=== PATIENT | female | born 1960 | race Caucasian/White ===

== ENCOUNTER 2018-03-25 14:33 | Outpatient (CLI) | payer OTHER, SELFPAY ==
--- NOTE | 2018-03-25 13:53 | DI.RAD_ITS ---
SYMPTOM/DIAGNOSIS: NECK PAIN, CERVICALGIA, M54.2 CERVICAL SPINE: Odontoid, AP and lateral and bilateral oblique views. Flexion and extension views were also obtained. There is normal alignment of the cervical spine. The odontoid is intact. The lateral masses are well aligned. Small endplate osteophytes are seen at C 4-5 through C 6-7. There is mild neural foraminal narrowing bilaterally at C 5-6. No acute fractures or subluxations are seen. No abnormal subluxations are seen with flexion or extension. IMPRESSION: Mild to moderate degenerative changes in the cervical spine.
== END 2018-03-25 14:53 ==
PROVIDERS: PCP Family Medicine; Visit Provider Family Medicine
DX: M54.2 Cervicalgia (principal); M47.812 Spondylosis without myelopathy or radiculopathy, cervical region
CPT/HCPCS: 72052

== ENCOUNTER 2019-03-18 00:48 | Outpatient (CLI) | payer BC, SELFPAY ==
--- NOTE | 2019-03-18 15:07 | DI.CT_ITS ---
EXAM: CT HEAD WO CLINICAL HISTORY: head injury when standing fast, chronic headaches, [id number]. TECHNIQUE: Imaging Protocol: Axial computed tomography images with coronal and sagittal reformatted images were created and reviewed COMPARISON: No exams were available for comparison FINDINGS: Ventricles and Extra axial spaces: Normal in size and morphology for the patient's age. Hemorrhage: None. Cerebral parenchyma: Normal. Midline shift: None. Brainstem/Cerebellum: Normal. Calvarium: Normal. Visualized Paranasal sinuses/Mastoids: Clear. IMPRESSION: No acute intracranial process. DATA REPOSITORY: All CT scans at this facility are submitted to the National Radiology Data Registry (NRDR) Dose Index Registry (DIR) with the [employer] (ACR). RADIATION OPTIMIZATION: All CT scans at this facility use at least one of these dose optimization te chniques: automated exposure control; mA and/or kV adjustment per patient size (includes targeted exa ms where dose is matched to clinical indication); or iterative reconstruction.
== END 2019-03-18 01:08 ==
PROVIDERS: PCP Family Medicine; Visit Provider Family Medicine
DX: R51 Headache (principal); S09.90XA Unspecified injury of head, initial encounter
CPT/HCPCS: 70450

== ENCOUNTER 2019-07-21 11:08 | Outpatient (CLI) | payer OTHER, MEDICAID, SELFPAY ==
--- NOTE | 2019-07-21 09:29 | DI.RAD_ITS ---
EXAM: XR KNEE RT 4V+ INDICATION: knee pain. COMPARISON: No exams were available for comparison TECHNIQUE: 2D digital imaging was performed. FINDINGS: There is moderate narrowing of the medial femoral tibial joint. Periarticular spurring is seen in th e medial femoral tibial joint and the patellofemoral joint. No acute fracture or dislocation is pres ent. There is a small enthesophyte at the superior patella. There is a small joint effusion. The s oft tissues are otherwise unremarkable. IMPRESSION: Mild degenerative changes of the right knee.
--- NOTE | 2019-07-21 09:35 | DI.RAD_ITS ---
EXAM: XR HIP RT AP LAT ONLY CLINICAL HISTORY: right hip pain after fall 06/06/19, M25.551. TECHNIQUE: 2D digital imaging was performed. COMPARISON: No exams were available for comparison FINDINGS: BONES: No acute fracture is present. No bony destructive lesion is seen. JOINTS: No dislocation present. SOFT TISSUE: Normal. IMPRESSION: Unremarkable radiographs of the right hip. Unremarkable radiographs of the pelvis.
== END 2019-07-21 11:28 ==
PROVIDERS: PCP Family Medicine; Visit Provider Family Medicine
DX: M25.551 Pain in right hip (principal); M25.561 Pain in right knee; M17.11 Unilateral primary osteoarthritis, right knee; M25.461 Effusion, right knee
CPT/HCPCS: 73502; 73564

== ENCOUNTER 2019-12-12 06:13 | Day surgery (SDC) | payer OTHER, SELFPAY ==
[2019-12-12 06:23] VITALS: BP 107/62; PULSE 65; RESP 17; TEMP 36.4; O2SAT 98
[2019-12-12] MEDS: Lactated Ringers 1,000 ML 80 ML IV (06:54)
--- NOTE | 2019-12-12 08:00 | W.PM.DSUDISC ---
Discharge Plan Disposition Patient Disposition: HOME Condition: Good Discharge Details Reason For Visit: Colonoscopy Attending Provider: Christy Nunez Primary Care Provider: Hermila Bennett Home Meds and New Rx's Prescriptions: Continued estradiol [Yuvafem] 10 mcg tablet 10 mcg VG .COMPLEX Qty: 25 RF: 5 acetaminophen [Acetaminophen Extra Strength] 500 MG tablet 1,000 mg PO Q8H PRN PRNQty: 120 RF: 3 Discontinued bisacodyl [Dulcolax (bisacodyl)] 5 mg tablet,delayed release (DR/EC) 5 mg PO ONCE Qty: 4 RF: 0 polyethylene glycol 3350 17 gram/dose powder 17 g PO ONCE Qty: 238 RF: 0 Discharge Instructions Additional Instructions: Findings: No polyps were found. Mild diverticulosis was present. Make sure to take in 30 grams of fiber daily. Follow up: Plan for colonoscopy in 5 years due to prior history of polyps. Please call if you develop: fevers >101.5 Nausea or Vomiting Abdominal pain that is not transient DAY SURGERY UNIT POST COLONOSCOPY INSTRUCTIONS 1. Because there will be medication in your system for the next 24 hours, you may feel a little sleepy. Your coordination will be affected. Therefore: a. Do not drive or operate dangerous equipment for 24 hours. b. Do not drink alcohol beverages for 24 hours (not even beer). c. Plan to go home and rest for the day. 2. Generally there are no restrictions on your activity after a day or so has gone by, but you may feel a bit fatigued for a few days. 3 After you arrive home you may have a light meal and return to a normal diet as you can tolerate it without feeling sick to your stomach. 4. After surgery, you may feel pain or discomfort. This should be only transient, but if it persists please contact your doctor. 5. If there are any questions regarding the findings of your procedure, please feel free to contact your doctor. 6. If you are unable to contact your doctor with a problem, contact the hospital at [phone]. 7. Continue all your regular medications unless directed otherwise. I understand the above instructions and have no questions. Signature of Patient or Responsible Adult Escort Date/Time Name of Responsible Adult Escort Signature of Nurse Date/Time Activity:: Activity as Tolerated Diet:: As Tolerated Discharge Orders Discharge Orders: Discharge Order (Routine); Ordered 12/12/19 Ordered By: Christy Nunez DS: Diagnosis Discharge Diagnosis (1) History of colon polyps: Status: Acute (2) Diverticulosis: Status: Chronic
--- NOTE | 2019-12-12 08:02 | W.COLOREPORT ---
Date of service: 12/12/19 Time of Service: 08:02 Colonoscopy Report Date of procedure: 12/12/19 Pre-op diagnosis general: History of polyps Post-op diagnosis procedure note: other (Mild diverticulosis) Procedure: Colonoscopy Surgeon: Christy Nunez Anesthesia proc note operative: MAC Disposition: same day Indications: This patient had polyps found in 2010 and 2014. She presents for routine follow up. No symptoms. Procedure Description: The patient was placed in the left Sams position. Propofol was titrated to sedation. Digital rectal examination revealed no abnormalities. The scope was advanced to the cecum without difficulty. The ileocecal valve and appendiceal orifice were clearly identified. The distal ileum was intubated and appeared normal. The prep was good. The scope was slowly withdrawn over the course of greater than 6 minutes with no abnormalities seen in the ascending, transverse, descending, sigmoid colon or rectum including on retroflexed view with the exception of mild sigmoid diverticulosis. The patient tolerated the procedure well and was stable to recovery. Plan for routine screening colonoscopy in 5 years or sooner if symptoms indicate.
[2019-12-12 08:23] VITALS: BP 125/73; PULSE 52; RESP 18; TEMP 36.4; O2SAT 100
== END 2019-12-12 09:05 | disposition home or self-care (01) ==
PROVIDERS: PCP Family Medicine; Visit Provider Surgery
PROC: 0DJD8ZZ Inspection of Lower Intestinal Tract, Via Natural or Artificial Opening Endoscopic (ICD-10-PCS; CPT 45378; principal; 2019-12-12 07:30)
DX: Z12.11 Encounter for screening for malignant neoplasm of colon (principal); Z86.010 Personal history of colon polyps; K57.30 Diverticulosis of large intestine without perforation or abscess without bleeding
CPT/HCPCS: 45378; J2001; J2405

== ENCOUNTER 2020-01-07 02:41 | Outpatient (CLI) | payer OTHER, SELFPAY ==
--- NOTE | 2020-01-07 08:45 | DI.MRI_ITS ---
EXAM: MR LOWER JOINT RT WO CLINICAL HISTORY: R/O MENISCUS TEAR, INJURY, RT KNEE, S89.91XA, KNEE PAIN. TECHNIQUE: Multiplanar multisequence MRI was performed. COMPARISON: MR MRI R LOWER JOINT WO CONT from 02/22/2017 MR MRI R LOWER JOINT WO CONT from 02/22/2017 FINDINGS: BONES: There is no fracture or contusion pattern. JOINTS: In the medial femoral tibial joint, there is thinning of the articular cartilage, marginal os teophytes and subchondral edema consistent with degenerative arthritis. Small joint effusion. Kanwal nal osteophytes are seen in the patellofemoral joint and the lateral femoral tibial joint. TENDONS: Extensor mechanism: Unremarkable. Medial retinaculum: Unremarkable. Lateral retinaculum: Unremarkable. Popliteus: Unremarkable. MUSCLES: Unremarkable. MENISCI: Hyperintense signal is seen in the body and posterior horn of the medial meniscus consistent with a tear. The lateral meniscus is unremarkable. SOFT TISSUES: Mild edema seen in the soft tissues anteriorly. There is a small popliteal cyst. LIGAMENTS: Anterior Cruciate: Unremarkable. Posterior Cruciate: Unremarkable. Medial Collateral:Unremarkable. Lateral Collateral: Unremarkable. OTHER: IMPRESSION: 1. Tear in the body and posterior horn of the medial meniscus. 2. Joint effusion and small popliteal cyst. 3. Degenerative joint disease. DATA REPOSITORY:
== END 2020-01-07 03:01 ==
PROVIDERS: PCP Family Medicine; Visit Provider Student in an Organized Health Care Education/Training Program
DX: S89.91XA Unspecified injury of right lower leg, initial encounter (principal); S83.241A Other tear of medial meniscus, current injury, right knee, initial encounter; M25.461 Effusion, right knee; M25.761 Osteophyte, right knee; M17.11 Unilateral primary osteoarthritis, right knee
CPT/HCPCS: 73721

== ENCOUNTER 2020-01-26 09:05 | Outpatient (CLI) | payer OTHER, SELFPAY ==
--- NOTE | 2020-01-26 08:30 | DI.RAD_ITS ---
EXAM: XR KNEE RT 4V AP,LAT,ARAVIND,PAT and XR standing alignment CLINICAL HISTORY: right knee pain. TECHNIQUE: 2D digital imaging was performed. COMPARISON: CR XR HIP RT AP LAT ONLY from 07/21/2019 CR XR STANDING ALIGNMENT from 01/26/2020 FINDINGS: Degenerative changes are seen in all 3 joint compartments of the right knee characterized by joint sp mat narrowing and marginal osteophytes. The bones are intact and normally mineralized. No significa nt joint effusion is present. The soft tissues are unremarkable. The hips, left knee and ankles are well maintained. The left lower extremity measures 83.9 cm. The right lower extremity measures 81.6 cm. IMPRESSION: Degenerative changes in the right knee. Leg length discrepancy as described. DATA REPOSITORY: RADIATION DOSE DELIVERED:
== END 2020-01-26 09:25 ==
PROVIDERS: PCP Family Medicine; Referring Provider Family Medicine; Visit Provider Student in an Organized Health Care Education/Training Program
DX: M17.11 Unilateral primary osteoarthritis, right knee (principal)
CPT/HCPCS: 73564; 77073

== ENCOUNTER 2020-03-15 07:28 | Outpatient (CLI) | payer OTHER, SELFPAY ==
[2020-03-16 17:24] LABS: COVID-19 RT-PCR Result NEGATIVE (Negative)
== END 2020-03-15 07:48 ==
PROVIDERS: PCP Family Medicine; Visit Provider Student in an Organized Health Care Education/Training Program
DX: Z01.818 Encounter for other preprocedural examination (principal); Z11.59 Encounter for screening for other viral diseases
CPT/HCPCS: U0003

== ENCOUNTER 2020-03-18 06:08 | Day surgery (SDC) | payer OTHER, SELFPAY ==
[2020-03-18] VITALS (10 sets, daily range): BP systolic 84–119; BP diastolic 45–68; PULSE 52–64; RESP 16–24; TEMP 36.5–37; O2SAT 96–100
[2020-03-18] MEDS: Lactated Ringers 1,000 ML 100 ML IV (06:54)
[2020-03-18] MEDS: ceFAZolin 2 GM/50 ML BAG IVPB (07:28)
[2020-03-18] MEDS: Tranexamic Acid 1,000 MG/10 ML VIAL 1000 MG (07:55)
[2020-03-18] MEDS: Bupivacaine 0.25% Pres-Free 30 ML VIAL (08:23)
[2020-03-18] MEDS: Ketorolac 30 MG/ML VIAL (08:24)
[2020-03-18] MEDS: Celecoxib 200 MG CAP 400 MG PO (11:35)
[2020-03-18] MEDS: Gabapentin 300 MG CAP PO (11:35)
--- NOTE | 2020-03-18 11:45 | DI.RAD_ITS ---
EXAM: XR KNEE RT 2V AP,LAT INDICATION: Postop. COMPARISON: CR XR KNEE RT 4V AP,LAT,ARAVIND,PAT from 01/26/2020 TECHNIQUE: 2D digital imaging was performed. Portable exam. FINDINGS: Patient is status post placement of a medial femoral tibial joint prosthesis. The components appear well aligned. There is residual postsurgical air in the anterior soft tissues and joint space. DATA REPOSITORY: RADIATION DOSE DELIVERED:
--- NOTE | 2020-03-18 11:52 | W.PM.DSUDISC ---
Discharge Plan Disposition Patient Disposition: HOME Condition: Stable Discharge Details Reason For Visit: Right partial knee replacement Attending Provider: Diogo Vazquez Primary Care Provider: Hermila Bennett Home Meds and New Rx's Prescriptions: New aspirin 325 mg tablet,delayed release (DR/EC) 325 mg PO BID 30 Days Qty: 60 RF: 0 ibuprofen 800 mg tablet 800 mg PO BID PRN (Reason: pain, moderate) Qty: 90 RF: 0 ondansetron 4 mg tablet,disintegrating 4 mg PO Q6H PRN (Reason: nausea or vomiting) Qty: 5 RF: 0 oxycodone 5 mg tablet 5 - 10 mg PO Q4H PRN (Reason: moderate to severe pain) Qty: 22 RF: 0 Continued tramadol 50 mg tablet 50 mg PO QHS Qty: 7 RF: 1 ibuprofen 800 mg tablet 800 mg PO BID PRN (Reason: pain) Qty: 60 RF: 0 estradiol [Yuvafem] 10 mcg tablet 10 mcg VG .COMPLEX Qty: 25 RF: 5 acetaminophen [Acetaminophen Extra Strength] 500 MG tablet 1,000 mg PO Q8H PRN PRNQty: 120 RF: 3 Discharge Instructions Additional Instructions: Surgery: Right medial unicondylar knee replacement Activity: Weightbearing as tolerated. Walk as comfort allows. May use walker as needed. Important to restore full knee extension as soon as possible. May gently progress knee flexion over the next few weeks. Do not rest with pillows behind knee to prevent knee from getting stuck bent. Physical therapy prescription will be sent electronically. Prescriptions: Aspirin 325 mg take 1 twice a day to prevent a blood clot 30 days Ibuprofen 800 mg take 1 every 12 hours with a meal as needed for moderate pain Oxycodone 5 mg take 1-2 every 4-6 hours as needed for severe pain You may use rugs-ofz-maluszd Tylenol (acetaminophen) as needed for mild pain. These pain medications may be taken all at once or in different combinations as needed. Ondansetron (Zofran) 4 mg take 1 orally dissolving tablet every 6 hours as needed for nausea or vomiting Also, recommend Colace (docusate) as a stool softener as surgery and pain medicine cause constipation. Dressings: Leave Band-Aid in place until follow-up. Keep clean and dry at all times. May remove Mk wrap tomorrow. May re-wrap with Mk wrap to help control swelling as needed. Follow-up: 10-[address] Vazquez You may take off the leg compression stockings tomorrow at home. You may also leave them on a few days longer if you have a history of leg swelling or edema. Let us know right away if you develop any redness, drainage, fevers, chest pain, or trouble breathing. Do not drink alcohol or drive for at least 24 hours after anesthesia. Please call the office during business hours with any questions or concerns. Referrals: Diogo Vazquez MD [ [facility] STAFF PHYSICIAN] - Discharge Orders Discharge Orders: Discharge Order (Routine); Ordered 03/18/20 Ordered By: Diogo Vazquez DS: Diagnosis Discharge Diagnosis (1) Arthritis of knee, right: Status: Acute
--- NOTE | 2020-03-18 12:00 | W.PM.OP ---
Date of service: 03/18/20 Time of Service: 11:51 Operative Note Operative Note DATE OF PROCEDURE: 03/18/20 PRE-OP DIAGNOSIS: 1. Right knee medial compartmental arthritis POST-OP DIAGNOSIS: other 1. Right knee medial compartmental arthritis 2. Right patellar osteophytes arthrosis PROCEDURE: 1. Right knee medial unicompartmental arthroplasty, CPT # 54290 2. Right knee patellar arthroplasty without prosthesis, CPT # 88747 The logistics assistant was medically required as this procedure involves retraction, protection of neurovascular structures, and manipulation of multiple instruments and implants at the same time, which cannot be done without a skilled logistics assistant. SURGEON: Diogo Vazquez TELEVISION PRODUCTION TECHNICIAN: Fahad Carlson ANESTHESIA: MAC, regional, local and spinal ESTIMATED BLOOD LOSS: 150 TOURNIQUET TIME: 0 COMPLICATIONS: None Patient was transported to: PACU Patient's condition: stable Implants: [place] Sigma HP partial knee size 3 metal-backed tibial tray, 7 mm tibial insert fixed bearing, size 3 femoral component Indications: Please see complete medical record for details. Findings: Medial compartment post meniscectomy cartilage loss degenerative changes and patellar marginal osteophytes and central cartilage softening chondromalacia Procedure Description: The patient was taken to the operating room and transferred to the operating room table. Spinal anesthesia was induced. All bony prominences were well-padded. Preoperative antibiotics and 1 g TXA were administered. A tourniquet was placed loosely over padding high on the patient's thigh. The knee and lower extremity were prepped and draped in the usual sterile fashion. The correct patient, procedure, and side of the procedure were all verified prior to incision. A slightly medial of midline longitudinal approach was used to the knee extending from the superior pole the patella to the distal aspect of the tibial tubercle. The quadriceps tendon, patella borders, and patellar tendon were exposed. A full-thickness arthrotomy was performed starting splitting the quadriceps tendon and leaving a sleeve of tissue on the medial aspect of the patella and taking care to progress along the medial margin the patellar tendon. The MCL was elevated off the proximal medial tibia. The tibial alignment jig was set in place on the anterior medial aspect of the tibia and carefully adjusted to achieve proper alignment in the coronal and sagittal planes. Reciprocating saw was used to create the vertical cut at the medial aspect of the medial tibial eminence taking care to protect the ACL ligament footprint. The transverse cut was then done using the microsagittal saw through the jig taking care to retract and protect the MCL. The bone piece and cut were inspected and found to be appropriate for patient anatomy. The 7 mm spacer block was inserted and found to have good equal stability in full extension and 90 degrees of flexion with approximately 2 mm of joint space opening in 30 degrees of flexion. A rasp was used to clean up the cut especially the L component.. The spacer block was removed and the tibia was sized with the depth gauge. The distal femoral cutting block was inserted taking care to orient it appropriately. The cut was done using the saw through the guide. The guide was removed, and the femur was sized with the femoral sizing blocks. The appropriate sized cutting jig was selected. Care was taken to ensure the block was flush with the resected distal femur bone surface. The posterior cut was done through the jig, an additional pin was inserted for additional stability, the anterior cut was done using the osteotomes, the posterior chamfer cut was done to the jig, and the drill was used to drill the 2 peg holes. The cutting block was removed, and the anterior chamfer cut was finished with a chisel and rasp taking care not to delaminated trochlear cartilage. The medial meniscus remnant was removed. The femoral component trial was placed in the distal femur and the 7 mm spacer block confirmed appropriate balancing in flexion, extension, and again 2 mm of medial joint space opening in 30 degrees of flexion. Tibial template was inserted and the size confirmed to be appropriate. The keel was used by hand to remove bone from the slot and the tibial peg drill was used in the peg hole. The pulse lavage was used to clean the bone surfaces. SmartSet medium viscosity cement was prepared. At the appropriate time during the early working phase, the cement was applied to the posterior part of the femoral component and onto the underside of the tibial component. Then, cement was carefully placed and pressurized into the proximal tibia taking care to only have minimal cement posteriorly. The tibial component was inserted at an angle and then impacted directing pressure from posterior to anterior to keep the flow of cement from posterior to anterior. Cement was then applied to the distal femur and the femoral component impacted. Excess cement was removed. The knee was brought into full extension and this position with axial load was maintained until the cement was completely hardened at 18 minutes. Tibial tray auto parts salesperson was removed, an osteotome and pituitary were used to completely remove excess hardened cement posteriorly and about the margin of the implants. The final tibial insert was inserted and clicked into place. The knee was tested through range of motion found to be stable with equal balancing from full extension to flexion past 90 degrees and a couple millimeters of medial joint space opening in 30 degrees of flexion. The patella had mild central softening and cartilage wear. The inferior and superior medial aspect of the patella had significant osteophytes. The most superior medial aspect the trochlea had a moderately sized osteophyte as well. These osteophytes were removed and the bone margins smoothed as part of a patellar femoral osteoplasty. Appropriate patellar tracking without any engaging or impinging osteophytes was confirmed after osteophyte removal. The wound was copiously irrigated with the pulse lavage and then Irrisept. A combination Exparel, toradol, and bupivicaine 0.25% pain injection was widely infiltrated about the knee. Appropriate hemostasis was achieved. The capsule was approximated using #1 Vicryl in a figure-of-8 interrupted fashion and then closed using Stratafix barbed suture in a running fashion. The superficial layers were irrigated. Subcutaneous tissue was closed using 2-0 Monocryl in a buried interrupted fashion. Skin was closed using 3-0 Monocryl in a buried subcuticular fashion. The skin incision was glued and then covered with a Mepilex Ag dressing. An Mk wrap was applied from the foot up to the thigh. The patient awoke from anesthesia without complication was transferred to the recovery room in stable condition.
[2020-03-18] MEDS: Ondansetron 4 MG/2 ML VIAL IVP (12:47)
[2020-03-18] MEDS: Scopolamine 1 MG/3 DAYS PATCH TD (12:47)
[2020-03-18] MEDS: diphenhydrAMINE 50 MG/ML VIAL 12.5 MG IVP (12:48)
== END 2020-03-18 15:10 | disposition home or self-care (01) ==
PROVIDERS: PCP Family Medicine; Visit Provider Student in an Organized Health Care Education/Training Program
PROC: (CPT 27446; principal; 2020-03-18 07:30)
DX: M17.11 Unilateral primary osteoarthritis, right knee (principal); M25.561 Pain in right knee; Z96.651 Presence of right artificial knee joint; G89.18 Other acute postprocedural pain
CPT/HCPCS: 27446; 27437; C1776; 76942; 73560; J0131; J0690; J1100; J1200; J1885; J2405; J2704; J3010

== ENCOUNTER 2020-04-27 10:17 | Outpatient (CLI) | payer OTHER, SELFPAY ==
--- NOTE | 2020-04-27 09:15 | DI.RAD_ITS ---
EXAM: XR KNEE RT 2V AP,LAT CLINICAL HISTORY: F/u. TECHNIQUE: 2D digital imaging was performed. COMPARISON: CR XR KNEE RT 2V AP,LAT from 03/18/2020 FINDINGS: BONES: There are stable post operative changes present. No fracture or dislocation. JOINTS: The joint spaces are well maintained. There is a small joint effusion. SOFT TISSUE: Normal. IMPRESSION: Stable postoperative changes. DATA REPOSITORY: RADIATION DOSE DELIVERED:
== END 2020-04-27 10:37 ==
PROVIDERS: PCP Family Medicine; Referring Provider Family Medicine; Visit Provider Student in an Organized Health Care Education/Training Program
DX: M24.561 Contracture, right knee (principal); M25.551 Pain in right hip; M25.461 Effusion, right knee
CPT/HCPCS: 73560

== ENCOUNTER 2020-05-31 03:39 | Outpatient (CLI) | payer OTHER, SELFPAY ==
[2020-05-31 12:39] LABS: ALT 20 U/L (14-59); AST 13 U/L (15-37); Albumin 3.9 g/dL (3.4-5.0); Alkaline Phosphatase 75 U/L (46-116); Anion Gap 9.2 mmol/L (3-11); BUN 16 mg/dL (7-18); Bilirubin, Total 0.3 mg/dL (0.2-1.0); CO2 27.8 mmol/L (21.0-32.0); CREATININE 0.92 mg/dL (0.55-1.02); Calcium 8.7 mg/dL (8.5-10.1); Chloride 104 mmol/L (98-107); Glucose 111 mg/dL (74-106); Potassium 3.8 mmol/L (3.5-5.1); Sodium 141 mmol/L (136-145); Total Protein 7.4 g/dL (6.4-8.2)
== END 2020-05-31 03:59 ==
PROVIDERS: PCP Family Medicine; Visit Provider Family Medicine
DX: Z00.00 Encounter for general adult medical examination without abnormal findings (principal)
CPT/HCPCS: 36415; 80053; 83735

== ENCOUNTER 2020-06-01 00:51 | Outpatient (CLI) | payer OTHER, SELFPAY ==
--- NOTE | 2020-06-01 07:45 | DI.MAMMO_ITS ---
EXAM: MG MAMMO SCREENING CLINICAL HISTORY: screening,Z12.39. TECHNIQUE: Bilateral full field digital CC and MLO mammographic images were obtained with 3D tomosyn thesis and utilizing computer aided detection (CAD). COMPARISON: Prior mammograms dating back to 2010, the most recent being August 2017. FINDINGS: There are no spiculated masses nor malignant appearing microcalcification groups. Benign-appearing mi crocalcifications in left breast are again noted. There is no significant architectural distortion n or skin thickening-retraction. IMPRESSION: No radiographic evidence of malignancy. BI-RADS Category 1 - Negative Breast Density - Category B - Scattered areas of fibroglandular density Breast density Category C or D implies that the patient has dense breast tissue. Dense breast tissue can make it harder to find cancer on a mammogram. Dense breast tissue is also associated with an incr eased risk of breast cancer. This information about the result of the mammogram report was provided to the patient to raise their awareness. Use this report when you speak with the patient about their risks for breast cancer, which includes their family history. At that time, you may recommend additional screening tests (Ultrasoun d or MRI) as these tests may add significant information. A negative radiographic report should not delay biopsy if a dominant or clinically suspicious mass is present. Up to ten percent of cancers are not identified on mammography. A negative report may reinforce clinical impression. Adenosis and dense breasts may obscure an underlying neoplasm. False positive reports average 6 to 10%. Patient will receive a letter notifying them of these results.
== END 2020-06-01 01:11 ==
PROVIDERS: PCP Family Medicine; Visit Provider Family Medicine
DX: Z12.31 Encounter for screening mammogram for malignant neoplasm of breast (principal); R92.0 Mammographic microcalcification found on diagnostic imaging of breast
CPT/HCPCS: 77063; 77067

== ENCOUNTER 2020-06-22 15:03 | Outpatient (REF) | payer OTHER, SELFPAY ==
[2020-06-22 13:28] LABS: Bilirubin Negative (Negative); Blood Trace-intact (Negative); Clarity Clear (Clear); Glucose Negative (Negative); Ketones Negative (Negative); Leukocyte Esterase Negative (Negative); Nitrite Negative (Negative); Specific Gravity 1.025 (1.005-1.025); Urobilinogen 0.2 EU/dL (Up TO 0.2)
[2020-06-22 13:42] LABS: Bacteria Rare HPF (Negative); C & S Indicated? No; Casts Negative LPF (Negative); Crystals Negative HPF (Negative); Epithelial Cells Few HPF (Negative); Mucus Negative (Negative); RBC 0-2 HPF (0-2); WBC 0-2 HPF (0-5)
== END 2020-06-22 15:23 ==
LOC: LBN 15:03
PROVIDERS: PCP Family Medicine; Visit Provider Family Medicine
DX: R82.998 Other abnormal findings in urine (principal)
CPT/HCPCS: 81003; 81015

== ENCOUNTER 2020-06-25 04:45 | Outpatient (CLI) | payer OTHER, SELFPAY ==
--- NOTE | 2020-06-25 06:15 | DI.US_ITS ---
EXAM: US ABDOMEN CLINICAL HISTORY: abdominal pain/ reflux,R10.9 TECHNIQUE: Ultrasound abdomen performed using standard protocol. COMPARISON: No previous for comparison. FINDINGS: ABDOMINAL AORTA AND IVC: Visualized portions normal caliber. PANCREAS: Normal where visualized. LIVER: Diffuse increased echogenicity consistent with fatty infiltration. The liver measures 17 cm i n length. Hepatopedal flow in the Portal Vein. GALLBLADDER: Multiple mobile gallstones. No evidence of wall thickening. No pericholecystic fluid id entified. BILIARY SYSTEM: Common bile duct measures < 7 mm. No intrahepatic biliary ductal dilation. EMNDOZA'S SIGN: Negative. KIDNEYS: Kidneys are symmetric in size. No evidence of renal calculi. No evidence of hydronephrosis. No renal mass or cyst identified. SPLEEN: Not enlarged. ASCITES: None seen. IMPRESSION: 1. Cholelithiasis. No evidence of biliary ductal dilatation. No sonographic evidence to suggest acu te cholecystitis. 2. Hepatic steatosis. DATA REPOSITORY:
== END 2020-06-25 05:05 ==
PROVIDERS: PCP Family Medicine; Visit Provider Family Medicine
DX: K80.20 Calculus of gallbladder without cholecystitis without obstruction (principal); K76.0 Fatty (change of) liver, not elsewhere classified
CPT/HCPCS: 76700

== ENCOUNTER 2020-07-12 13:13 | Outpatient (REF) | payer OTHER, SELFPAY ==
[2020-07-12 11:56] LABS: Abs Immature Grans 0.01 10^3/uL (0.0-0.06); Absolute Basophil Count 0.03 10^3/uL (0.0-0.2); Absolute Eosinophil Count 0.03 10^3/uL (0.0-0.7); Absolute Lymphocyte Count 2.03 10^3/uL (1.2-3.4); Absolute Monocyte Count 0.33 10^3/uL (0.1-0.8); Absolute Neutrophil Count 2.51 10^3/uL (1.2-6.7); Basophils % 0.6; Eosinophils % 0.6; HGB 13.5 g/dL (11.2-15.7); Immature Grans % 0.2; Lymphocytes % 41.1; MCH 30.1 pg (27.0-33.0); MCHC 33.8 % (32.0-36.0); MCV 89.3 fL (80-95); Monocytes % 6.7; Neutrophils % 50.8; Nucleated RBC 0 %; Platelet Count 289 10^3/uL (130-400); RBC 4.48 10^6/uL (3.93-5.22); RDW 11.7 % (11.7-14.6); RDW-SD 37.8 fL; WBC 4.94 10^3/uL (4.4-10.8)
[2020-07-12 12:05] LABS: Iron 96 ug/dL (50-170); Total Iron Binding Capacity 293 ug/dL (250-450); Transferrin Sat 33 % (15-50)
[2020-07-12 12:18] LABS: ALT 24 U/L (14-59); AST 18 U/L (15-37); Alkaline Phosphatase 79 U/L (46-116); Anion Gap 5.1 mmol/L (3-11); BUN 16 mg/dL (7-18); Bilirubin, Total 0.3 mg/dL (0.2-1.0); CO2 26.9 mmol/L (21.0-32.0); CREATININE 0.89 mg/dL (0.55-1.02); Calcium 9.2 mg/dL (8.5-10.1); Chloride 104 mmol/L (98-107); Ferritin 78 ng/mL (8-252); Glucose 93 mg/dL (74-106); Potassium 3.9 mmol/L (3.5-5.1); Sodium 136 mmol/L (136-145); Total Protein 7.9 g/dL (6.4-8.2)
== END 2020-07-12 13:33 ==
LOC: LBN 13:13
PROVIDERS: PCP Family Medicine; Visit Provider Surgery
DX: R11.0 Nausea (principal); K80.20 Calculus of gallbladder without cholecystitis without obstruction; R10.9 Unspecified abdominal pain
CPT/HCPCS: 80053; 82728; 83540; 83550; 85025

== ENCOUNTER 2020-07-13 03:08 | Outpatient (CLI) | payer OTHER, SELFPAY ==
[2020-07-13 21:41] LABS: COVID-19 RT-PCR UVMMC Result Negative (Negative)
== END 2020-07-13 03:28 ==
PROVIDERS: PCP Family Medicine; Visit Provider Surgery
DX: Z11.52 Encounter for screening for COVID-19 (principal); Z01.818 Encounter for other preprocedural examination
CPT/HCPCS: U0003

== ENCOUNTER 2020-07-15 06:09 | Day surgery (SDC) | payer OTHER, SELFPAY ==
[2020-07-15 06:33] VITALS: BP 113/61; PULSE 59; RESP 16; TEMP 36.4; O2SAT 99
[2020-07-15] MEDS: Lactated Ringers 1,000 ML 80 ML IV (06:49)
[2020-07-15] MEDS: Ondansetron 4 MG/2 ML VIAL IVP (06:54)
[2020-07-15] MEDS: Normal Saline Flush 10 ML SYR IV ×2 (06:55→08:27)
[2020-07-15] MEDS: CLINDAMYCIN 600 MG/50 ML BAG 100 MG IVPB (07:34)
--- NOTE | 2020-07-15 07:42 | STOM_PTH ---
PATIENT: Christy Weldon LOC: [facility] U#:[id number] AGE/SX: 60/F ROOM: RE07/15/[address]: Jackeline Casarez : 1960 BED: DIS: 07/15/2020 SPEC #: [id number] RECD: 07/15/20 12:34 STATUS: RHONA REBertha #: [id number] DAMIÁN: 07/15/20 07:[address]: Jackeline Casarez DEPT: Surgical Specimen RECD BY: Tiera Keane ENTERED: 07/15/20 12:35 SP TYPE: STOMACH OTHR DR: Hermila Bennett MD, DC Tissues: 1 - BIOPSY BOWEL 2 - STOMACH BIOPSY 3 - STOMACH BIOPSY 4 - ESOPHAGUS BIOPSY 5 - ESOPHAGUS BIOPSY Procedures: GROSS AND MICRO LEVEL 4 Comments: [id number]
--- NOTE | 2020-07-15 08:10 | ENDO_ITS ---
Date of service: 07/15/20 Time of Service: 08:11 Endoscopy Report POST-OP DIAGNOSIS: other (moderate Gastritis and mild duodenitis) ANESTHESIA: GETA PROCEDURE DESCRIPTION: After informed consent was obtained the patient was take to the procedure room and placed in a supine position. Monitors were applied and a time out was done. The patients name, date of , procedure type, allergies to medications and metal in their body was reviewed. A bite block was placed and the patient was sedated. Once sedated and comfortable the gastroscope was advanced through the oropharynx which was grossly normal into the esophagus. The proximal and mid-esophagus were nl. In the distal esophagus there was nl noted. The scope was advanced into the stomach and through the pylorus into the 3rd portion of the duodenum. The duodenum was noted to be mild duodenitis. Biopsies were done . All specimens are retrieved and no bleeding is noted the scope was retracted back into the stomach and biopsies were done to rule out H. pylori. There were 3 punctate ulcers in the area of the antrum. They are mostly healed over at this point. Ther is mild gastritis radiating out from the antrum in a striped pattern. The scope was retroflexed. The cardia and fundus were noted to be normal. There very very small a hiatal hernia noted. The scope was retracted back into the esophagus and biopsies were done of the GE junction to rule out Warren's. The Z line was regular. The scope was removed and the patient was woken up and taken back to [facility] in stable condition. Follow up: 2 wks
--- NOTE | 2020-07-15 08:14 | W.PM.DSUDISC ---
Discharge Plan Disposition Patient Disposition: HOME Condition: Good Discharge Details Reason For Visit: stomach scope Attending Provider: Jackeline Casarez Primary Care Provider: Hermila Bennett Home Meds and New Rx's Prescriptions: No Action pantoprazole [Protonix] 40 mg tablet,delayed release (DR/EC) 40 mg PO DAILY Qty: 30 RF: 12 Dexilant 60 mg capsule,biphase delayed releas 60 mg PO DAILY Qty: 30 RF: 4 estradiol [Yuvafem] 10 mcg tablet 10 mcg VG .COMPLEX Qty: 25 RF: 5 acetaminophen [Acetaminophen Extra Strength] 500 MG tablet 1,000 mg PO Q8H PRN PRNQty: 120 RF: 3 Discharge Instructions Additional Instructions: Findings:gastritis- moderate. x3 small ulcers that are healing duodentitis Once you have finished the prescription for Dexilant, start Protonix. This was called into your pharmacy. No further aspirin or ibuprofen. Tylenol is okay. After 24 hours you are okay to resume physical therapy. Try to limit caffeine to 1-2 per day. If you have to drink coffee- Continue with lifestyle modifications: no alcohol, tobacco products, Aspirin or NSAID's (ibuprofen, Motrin, Naprosyn, aleve, etc), soda pop/any carbonated beverages, caffeine (including tea & chocolate). Try to avoid acidic foods, (tomatoes, citrus, onions, peppermints) spicy or fried/fatty foods. Do not lie down for 30 minutes after eating, and do not eat 2 hours prior to bedtime. Avoid wearing tight fitting clothing/ belts Follow up:2 wks Please call if you develop: fevers >101.5 Nausea or Vomiting Abdominal pain that is not transient DAY SURGERY UNIT POST COLONOSCOPY INSTRUCTIONS 1. Because there will be medication in your system for the next 24 hours, you may feel a little sleepy. Your coordination will be affected. Therefore: a. Do not drive or operate dangerous equipment for 24 hours. b. Do not drink alcohol beverages for 24 hours (not even beer). c. Plan to go home and rest for the day. 2. Generally there are no restrictions on your activity after a day or so has gone by, but you may feel a bit fatigued for a few days. 3 After you arrive home you may have a light meal and return to a normal diet as you can tolerate it without feeling sick to your stomach. 4. After surgery, you may feel pain or discomfort. This should be only transient, but if it persists please contact your doctor. 5. If there are any questions regarding the findings of your procedure, please feel free to contact your doctor. 6. If you are unable to contact your doctor with a problem, contact the hospital at [phone]. 7. Continue all your regular medications unless directed otherwise. I understand the above instructions and have no questions. Signature of Patient or Responsible Adult Escort Date/Time Name of Responsible Adult Escort Signature of Nurse Date/Time Activity:: no lifting over 20#'s or strenuous activity x 24 hrs Diet:: small light meals x24 hours Discharge Orders Discharge Orders: Discharge Order (Routine); Ordered 07/15/20 Ordered By: Jackeline Casarez DS: Diagnosis Discharge Diagnosis (1) Cholelithiases: Status: Acute (2) Erosive gastritis: Status: Acute (3) Duodenitis: Status: Acute (4) PONV (postoperative nausea and vomiting): Status: Acute
[2020-07-15 08:25] VITALS: BP 108/63; PULSE 57; RESP 16; TEMP 36.5; O2SAT 96
[2020-07-15] MEDS: Pantoprazole 40 MG VIAL IVP (08:27)
== END 2020-07-15 09:08 | disposition home or self-care (01) ==
PROVIDERS: PCP Family Medicine; Visit Provider Surgery
PROC: 0DJ68ZZ Inspection of Stomach, Via Natural or Artificial Opening Endoscopic (ICD-10-PCS; CPT 43235; principal; 2020-07-15 07:30)
DX: R10.9 Unspecified abdominal pain (principal); R11.0 Nausea; K31.89 Other diseases of stomach and duodenum; K29.70 Gastritis, unspecified, without bleeding; K29.80 Duodenitis without bleeding; K44.9 Diaphragmatic hernia without obstruction or gangrene
CPT/HCPCS: 43239; 88305; J2001; J2405; J2704

== ENCOUNTER 2021-03-22 09:09 | Outpatient (CLI) | payer MEDICAID, SELFPAY ==
--- NOTE | 2021-03-22 09:20 | DI.RAD_ITS ---
Exam(s) XR KNEE RT 2V AP,LAT EXAM: XR KNEE RT 2V AP,LAT CLINICAL HISTORY: right knee arthroplasty f/u. TECHNIQUE: 2D digital imaging was performed of the right knee. Two views obtained. AP and lateral v iews were obtained. COMPARISON: CR XR KNEE RT 2V AP,LAT from 04/27/2020 FINDINGS: BONES: No acute fracture is present. No bony destructive lesion is seen. Small enthesophyte at the crandall perior patella. JOINTS: The knee is normally aligned. No joint effusion is seen. Stable postsurgical changes of a par tial knee replacement. Periarticular spurring of the posterior patella and the lateral femoral tibia l joint. SOFT TISSUE: Normal. IMPRESSION: 1. Stable postsurgical changes in the right knee. 2. Mild degenerative changes of the right knee. DATA REPOSITORY: RADIATION DOSE DELIVERED:
== END 2021-03-22 09:10 | disposition home or self-care (01) ==
LOC: DIORS 09:09
PROVIDERS: PCP Family Medicine; Referring Provider Family Medicine; Visit Provider Student in an Organized Health Care Education/Training Program
DX: Z96.651 Presence of right artificial knee joint (principal); M17.11 Unilateral primary osteoarthritis, right knee; Z98.890 Other specified postprocedural states
CPT/HCPCS: 73560

== ENCOUNTER → 2021-12-02 00:30 | Outpatient (CLI) | payer MEDICAID, SELFPAY ==
--- NOTE | 2021-12-02 06:45 | DI.MAMMO_ITS ---
Exam(s) MAMMO SCREENING EXAM: MAMMO SCREENING CLINICAL HISTORY: screening,z12.39 TECHNIQUE: Mammograms were interpreted according to the usual protocol including computer analysis w [employer]self CAD system, tomosynthesis and C-view imaging. COMPARISON: FINDINGS: The breasts are of moderate density with fairly symmetrical distribution of fibroglandular tissue. N o dominant mass or clumped microcalcification is identified in either breast. The current examinatio n is compared with previous examinations including May 2020 and there has been no gross interval change in appearance in comparison with the prior studies. IMPRESSION: No specific evidence of malignancy at this time. Routine screening examinations are suggested at yea rly intervals in this age group according to the ACS ACR guidelines. BI-RADS Category 1 - Negative Breast Density - Category B - Scattered areas of fibroglandular density
== END ==
PROVIDERS: PCP Family Medicine; Visit Provider Family Medicine
DX: Z12.31 Encounter for screening mammogram for malignant neoplasm of breast (principal)
CPT/HCPCS: 77063; 77067

== ENCOUNTER 2022-01-27 15:29 | Outpatient (REF) | payer MEDICAID, SELFPAY ==
[2022-01-27 14:34] LABS: Bilirubin Negative (Negative); Blood Negative (Negative); Clarity Clear (Clear); Glucose Negative (Negative); Ketones Negative (Negative); Leukocyte Esterase Negative (Negative); Nitrite Negative (Negative); Urobilinogen 0.2 EU/dL (Up TO 0.2)
== END 2022-01-27 15:30 | disposition home or self-care (01) ==
LOC: LBN 15:29
PROVIDERS: PCP Family Medicine; Visit Provider Nurse Practitioner Family
DX: R35.0 Frequency of micturition (principal)
CPT/HCPCS: 81003

== ENCOUNTER 2022-09-18 10:23 | Outpatient (CLI) | payer MEDICAID, SELFPAY ==
--- NOTE | 2022-09-18 12:29 | DI.RAD_ITS ---
Exam(s) XR HIP RT COMPLETE AP PELVIS EXAM: XR HIP RT COMPLETE AP PELVIS CLINICAL HISTORY: r hip pain M25.551 PAIN RT HIP. TECHNIQUE: 2D digital imaging was performed. COMPARISON: CR XR HIP RT AP LAT ONLY from 07/21/2019 FINDINGS: Two views: No evidence of pelvic nor hip fracture. No avascular necrosis. No degenerative changes evident. No evidence of hip dysplasia. No osteophytes. Bone density normal. SI joints unremarkable. IMPRESSION: No significant osseous findings. DATA REPOSITORY: RADIATION DOSE DELIVERED:
== END 2022-09-18 10:43 ==
LOC: DI 10:25
PROVIDERS: PCP Family Medicine; Visit Provider Family Medicine
DX: M25.551 Pain in right hip (principal)
CPT/HCPCS: 73502

== ENCOUNTER 2022-12-04 11:38 | Outpatient (CLI) | payer MEDICAID, SELFPAY ==
--- NOTE | 2022-12-04 10:15 | DI.RAD_ITS ---
Exam(s) XR LUMBAR SPINE COMPLETE EXAM: XR LUMBAR SPINE COMPLETE CLINICAL HISTORY: LBP/hip pain, trochanteric bursitis M70.60, sciatica M54.30. TECHNIQUE: 2D digital imaging was performed. Five views. COMPARISON: No exams were available for comparison FINDINGS: BONES: No fracture or destructive lesion. Vertebral body heights are maintained. facet hypertrophy, greatest at L4-5. DISKS: Moderate to severe narrowing of the L1-2 and L2-3 disc. Mild disc space narrowing at L3-4. S evere disc space narrowing at L5-S1. ALIGNMENT: Mild degenerative dextro scoliosis centered at L 2 3. SOFT TISSUE: Normal. IMPRESSION: Multilevel degenerative changes. DATA REPOSITORY: RADIATION DOSE DELIVERED:
== END 2022-12-04 11:58 ==
LOC: DI 11:41
PROVIDERS: PCP Family Medicine; Visit Provider Family Medicine
DX: M51.36 Other intervertebral disc degeneration, lumbar region; M41.86 Other forms of scoliosis, lumbar region
CPT/HCPCS: 72110

== ENCOUNTER 2023-01-23 02:19 | Outpatient (CLI) | payer MEDICAID, SELFPAY ==
--- NOTE | 2023-01-23 08:00 | DI.DEXA_ITS ---
Exam(s) XR DEXA BONE DENSITY W/WO [place] EXAM: XR DEXA BONE DENSITY W/WO [place] CLINICAL HISTORY: screening for osteoporosis in postmenopausal woman,z78.0 TECHNIQUE: [employer] C densitometer analysis of left hip, lumbar spine and left forearm. Lat eral survey image of the thoracic and lumbar spine. COMPARISON: 2005 FINDINGS: Lateral view of the thoracic and lumbar spine shows no evidence of compression fractures. Bone mineral density measurements of the lumbar spine correspond to a total T-score of 0.4, in the n ormal range. This is not significantly changed from the prior exam. Bone mineral density measurements of the left hip correspond to a total T-score of -1.2. The femora l neck T-score is -2.1, in the osteopenic range. This represents an 11.8 percent decrease compared with 2005.. Theleft forearm bone mineral density measurements correspond to a T-score of the distal 3rd of -1.9, in the osteopenic range. The forearm was not analyzed on the prior exam.. IMPRESSION: Normal bone mineral density of the lumbar spine. Osteopenia of the hip and forearm.
--- NOTE | 2023-01-23 15:23 | DI.MAMMO_ITS ---
Exam(s) MAMMO SCREENING EXAM: MAMMO SCREENING CLINICAL HISTORY: screening,z12.39 TECHNIQUE: Bilateral full field digital CC and MLO mammographic images were obtained with 3D tomosyn thesis and utilizing computer aided detection (CAD). COMPARISON: Available for comparison. FINDINGS: Masses/Architectural Distortion: There is a new 5 mm nodule in the upper outer retroareolar region of the right breast. Microcalcifications: No suspicious pleomorphic-type are seen. Skin Thickening/Nipple Retraction: None. IMPRESSION: 1. New retroareolar right breast nodule. 2. This area should be further evaluated with a spot compression view. Limited right breast ultrasou nd should also be attained at that time. BI-RADS Category 0 - Assessment Incomplete: Need additional imaging evaluation Breast Density - Category B - Scattered areas of fibroglandular density Breast density category C or D implies that the patient has dense breast tissue. Dense breast tissue is very common and is not abnormal but dense breast tissue can make it harder to find cancer on a ma mmogram. Also, dense breast tissue may increase their breast cancer risk. This information about the result of the mammogram report was provided to the patient to raise their awareness. Use this report when you speak with the patient about their risks for breast cancer, which includes their family hist ory. At that time, you may recommend for more screening tests (Ultrasound or MRI) as they might be us eful based on their risk. A negative radiographic report should not delay biopsy if a dominant or clinically suspicious mass is present. Up to ten percent of cancers are not identified on mammography. A negative report may reinforce clinical impression. Adenosis and dense breasts may obscure an underlying neoplasm. False positive reports average 6 to 10%. Patient will receive a letter notifying them of these results.
== END 2023-01-23 02:39 ==
LOC: DI 02:19
PROVIDERS: PCP Family Medicine; Visit Provider Family Medicine
DX: Z12.31 Encounter for screening mammogram for malignant neoplasm of breast (principal); Z78.0 Asymptomatic menopausal state; Z13.820 Encounter for screening for osteoporosis
CPT/HCPCS: 77063; 77067; 77080

== ENCOUNTER 2023-01-26 02:45 | Outpatient (CLI) | payer MEDICAID, SELFPAY ==
[2023-01-26 12:23] LABS: HCT 39.8 % (36.0-46.0); HGB 13.1 g/dL (11.2-15.7); MCH 29.7 pg (27.0-33.0); MCHC 32.9 % (32.0-36.0); MCV 90 fL (80-95); Platelet Count 278 10^3/uL (130-400); RBC 4.41 10^6/uL (3.93-5.22); RDW 11.7 % (11.7-14.6); RDW-SD 38.7 fL; WBC 6.07 10^3/uL (4.4-10.8)
[2023-01-26 13:26] LABS: ALT 20 U/L (14-59); AST 15 U/L (15-37); Albumin 3.8 g/dL (3.4-5.0); Alkaline Phosphatase 83 U/L (46-116); Anion Gap 9.4 mmol/L (3-11); BUN 13 mg/dL (7-18); Bilirubin, Total 0.4 mg/dL (0.2-1.0); CO2 25.6 mmol/L (21.0-32.0); Calcium 8.9 mg/dL (8.5-10.1); Calculated LDL 117 mg/dL (<100); Chloride 101 mmol/L (98-107); Cholesterol 177 mg/dL (<200); Estimated GFR 62.91 (mL/min/1.73m2); Glucose 100 mg/dL (74-106); HDL Cholesterol 45 mg/dL (40-60); Potassium 3.8 mmol/L (3.5-5.1); Sodium 136 mmol/L (136-145); Total Protein 7.6 g/dL (6.4-8.2); Triglyceride 78 mg/dL (<150)
== END 2023-01-26 02:46 | disposition home or self-care (01) ==
LOC: LOS 02:45
PROVIDERS: PCP Family Medicine; Visit Provider Family Medicine
DX: Z13.220 Encounter for screening for lipoid disorders (principal); Z13.29 Encounter for screening for other suspected endocrine disorder; Z00.00 Encounter for general adult medical examination without abnormal findings; R53.82 Chronic fatigue, unspecified; R79.89 Other specified abnormal findings of blood chemistry
CPT/HCPCS: 36415; 80053; 80061; 85027; 84443

== ENCOUNTER → 2023-01-30 01:12 | Outpatient (CLI) | payer MEDICAID, SELFPAY ==
--- NOTE | 2023-01-30 | DI.US_ITS ---
Exam(s) MG MAMMO SCREEN CALL BACK UNI US BREAST RT LIMITED EXAM: MG MAMMO SCREEN CALL BACK UNI CLINICAL HISTORY: F/U MAMMO, NEW RETROAREOLAR RT BREAST NODULE. TECHNIQUE: Spot compression digital Mammography views of the bothbreasts with Tomosynthesis followe d by bilateral breast ultrasound. COMPARISON: MG Screening Bilat Mammo from 06/23/2015 MG Screening Bilat Mammo from 09/04/2017 MG MG MAMMO SCREENING from 06/01/2020 MG MG MAMMO SCREENING from 12/02/2021 MG MG MAMMO SCREENING from 01/23/2023 US US BREAST RT LIMITED from 01/30/2023 FINDINGS: RIGHT BREAST: Mammography/Tomosynthesis: Masses/Architectural Distortion: There is a persistent circumscribed nodule in the retroareolar regio n. Microcalcifictions: No suspicious pleomorphic-type are seen. Skin Thickening/Nipple Retraction: None. Right breast US: Echotexture: Normal appearance of the glandular tissue. Shadowing: No suspicious foci. Cyst: 6 x 3 x 6 centimeter cyst in the 12 o'clock position 1 cm from the nipple, corresponding to the mammographic nodule. Solid lesions: None seen. Ductal dilation: None. IMPRESSION: Right breast: No evidence of malignancy is noted. 6 millimeter cyst corresponds to the mammographic nodule. Unless there is more urgent need, follow-up screening mammography is recommended, as per [place] [employer] guidelines. The findings were discussed with the patient on the date of the examination. BI-RADS Category 2 - Benign Findings Breast Density - Category B - Scattered areas of fibroglandular density A negative radiographic report should not delay biopsy if a dominant or clinically suspicious mass is present. Up to ten percent of cancers are not identified on mammography. A negative report may reinforce clinical impression. Adenosis and dense breasts may obscure an underlying neoplasm. False positive reports average 6 to 10%. Patient will receive a letter notifying them of these results.
== END ==
PROVIDERS: PCP Family Medicine; Visit Provider Family Medicine
DX: Z12.31 Encounter for screening mammogram for malignant neoplasm of breast (principal); N63.15 Unspecified lump in the right breast, overlapping quadrants
CPT/HCPCS: 76642; 77063; 77067

== ENCOUNTER 2023-11-13 15:41 | Outpatient (CLI) | payer BC, SELFPAY ==
--- NOTE | 2023-11-13 09:15 | DI.RAD_ITS ---
Exam(s) XR KNEE RT 3V AP,LAT,ARAVIND EXAM: XR KNEE RT 3V AP,LAT,ARAVIND CLINICAL HISTORY: F/U RIGHT UKA. TECHNIQUE: 2D digital imaging was performed. Three images were obtained. Merchant's, AP and lateral views were obtained. COMPARISON: CR XR KNEE RT 2V AP,LAT from 03/22/2021 FINDINGS: BONES: There are stable post operative changes of a partial right knee replacement present. No fract ure or dislocation. There is an enthesophyte at the anterior superior patella. JOINTS: The orthopedic hardware is in good position. No evidence of hardware loosening. Small osteo phytes are seen in the lateral femoral tibial joint and the posterior patella. SOFT TISSUE: Normal. IMPRESSION: Stable partial right knee replacement. DATA REPOSITORY: RADIATION DOSE DELIVERED:
== END 2023-11-13 15:42 | disposition home or self-care (01) ==
LOC: DIORS 15:41
PROVIDERS: PCP Family Medicine; Visit Provider Student in an Organized Health Care Education/Training Program
DX: Z96.659 Presence of unspecified artificial knee joint (principal); Z47.1 Aftercare following joint replacement surgery
CPT/HCPCS: 73562

== ENCOUNTER 2023-12-11 14:15 | Outpatient (CLI) | payer MEDICARE, SELFPAY ==
--- NOTE | 2023-12-11 13:00 | DI.RAD_ITS ---
Exam(s) XR KNEE LT 3V AP,LAT,ARAVIND EXAM: XR KNEE LT 3V AP,LAT,ARAVIND CLINICAL HISTORY: LEFT KNEE PAIN. TECHNIQUE: 2D digital imaging was performed. Three views. COMPARISON: No exams were available for comparison FINDINGS: BONES: No acute fracture is present. No bony destructive lesion is seen. JOINTS: The knee is normally aligned. No joint effusion is seen. Mild narrowing of the lateral femo ral tibial joint space. Periarticular spurring throughout, greatest at the lateral femoral tibial lester int. Remaining joint spaces are maintained. SOFT TISSUE: Normal. IMPRESSION: Degenerative changes of the lateral femoral tibial joint. DATA REPOSITORY: RADIATION DOSE DELIVERED:
== END 2023-12-11 14:16 | disposition home or self-care (01) ==
LOC: DIORS 14:16
PROVIDERS: PCP Family Medicine; Visit Provider Student in an Organized Health Care Education/Training Program
DX: M23.92 Unspecified internal derangement of left knee; Z96.651 Presence of right artificial knee joint
CPT/HCPCS: 73562; 99213

== ENCOUNTER → 2024-01-10 00:44 | Outpatient (CLI) | payer MEDICARE, SELFPAY ==
--- NOTE | 2024-01-10 15:54 | DI.MRI_ITS ---
Exam(s) MR LOWER JOINT LT WO EXAM: MR LOWER JOINT LT WO CLINICAL HISTORY: Internal derangement of lt knee, M23.92, ? MENISCAL TEAR. TECHNIQUE: Multiplanar multisequence MRI was performed. COMPARISON: CR XR KNEE LT 3V AP,LAT,ARAVIND from 12/11/2023 FINDINGS: BONES: There is no fracture or contusion pattern. JOINTS: There is thinning of the articular cartilage in the medial femoral tibial joint. There is al so articular cartilage thinning and subchondral edema in the patellofemoral joint particularly medial ly. There is a small joint effusion. There are osteophytes in the medial and lateral femoral tibial joints. TENDONS: Extensor mechanism: Unremarkable. Medial retinaculum: Unremarkable. Lateral retinaculum: Unremarkable. Popliteus: Unremarkable. MUSCLES: Unremarkable. MENISCI: The medial meniscus is unremarkable. There is a tear of the posterior horn of the lateral m eniscus. SOFT TISSUES: There is edema seen in the prepatellar soft tissues which may represent a bursitis. LIGAMENTS: Anterior Cruciate: Unremarkable. Posterior Cruciate: Unremarkable. Medial Collateral:Unremarkable. Lateral Collateral: Unremarkable. OTHER: IMPRESSION: 1. Tear of the posterior horn of the lateral meniscus. 2. No evidence of a ligament tear. 3. Degenerative changes seen in the knee with findings most marked at the patellofemoral and medial f emoral tibial joint. 4. Small joint effusion. DATA REPOSITORY:
== END ==
PROVIDERS: PCP Family Medicine; Visit Provider Student in an Organized Health Care Education/Training Program
DX: M23.92 Unspecified internal derangement of left knee (principal); M25.462 Effusion, left knee; S83.282A Other tear of lateral meniscus, current injury, left knee, initial encounter
CPT/HCPCS: 73721

== ENCOUNTER → 2024-01-17 02:13 | Outpatient (CLI) | payer MEDICARE, SELFPAY ==
--- NOTE | 2024-01-17 07:15 | DI.MRI_ITS ---
Exam(s) MR LUMBAR SPINE WO EXAM: MR LUMBAR SPINE WO CLINICAL HISTORY: multi level DDD; spinal stenosis, M48.00. TECHNIQUE: Multiplanar multisequence MRI of the Lumbar spine was performed. COMPARISON: CR XR LUMBAR SPINE COMPLETE from 12/04/2022 FINDINGS: Bones: The last intervertebral disc space is designated the L5/S1 level for the numbering purpose of this ex amination. The vertebral body heights are well maintained. Alignment: Minimal degenerative scoliosis. The marrow signal characteristics are unremarkable. Cord: The conus tip ends at the T12 level. It is of normal size and signal intensity. T12-L1: No focal disc herniation is present. No central spinal canal stenosis.No neural foraminal st enosis. L1-2:Mild loss of disc height. Small endplate osteophytes and mild disc bulging. No focal disc tao iation is present. No central spinal canal stenosis.No neural foraminal stenosis. L2-3: Moderate loss of disc height. Endplate osteophytes, eccentric toward the right. No focal di sc herniation is present. Mild facet degenerative changes. minimal central spinal canal stenosis. Moderate right and mild left neural foraminal narrowing. L3-4: Normal disc height. Mild concentric disc bulging. Mild facet degenerative changes and ligamen tous hypertrophy. No focal disc herniation is present. Mild central spinal canal stenosis.Moderate to severe right neural foraminal stenosis and mild left neural foraminal narrowing. L4-5: Normal disc height. Mild disc bulging. Small endplate osteophytes. No focal disc herniation is present. Prominent facet degenerative changes and ligamentous hypertrophy. Moderate central spinal c anal stenosis.Severe left and mild to moderate right neural foraminal stenosis. L5-S1: Severe loss of disc height. Small endplate osteophytes.No focal disc herniation is present. Mi ld facet degenerative changes. No central spinal canal stenosis.Mild right neural foraminal stenosis . The visualized SI joints and sacrum are unremarkable. Soft tissues: The paraspinal soft tissues are unremarkable. Aorta normal in diameter. IMPRESSION: No evidence of focal disc herniation. Degenerative changes combine to produce moderate central canal stenosis at L4-5 small severe left joelle ral foraminal narrowing. Degenerative changes to lesser extent at levels. DATA REPOSITORY:
== END ==
PROVIDERS: PCP Family Medicine; Visit Provider Family Medicine
DX: M48.00 Spinal stenosis, site unspecified (principal); M48.061 Spinal stenosis, lumbar region without neurogenic claudication
CPT/HCPCS: 72148

== ENCOUNTER 2024-01-22 15:44 | Outpatient (CLI) | payer MEDICARE, SELFPAY ==
--- NOTE | 2024-01-22 14:15 | DI.RAD_ITS ---
Exam(s) XR KNEE RT 3V AP,LAT,ARAVIND EXAM: XR KNEE RT 3V AP,LAT,ARAVIND CLINICAL HISTORY: RIGHT KNEE PAIN S/P FALL. TECHNIQUE: 2D digital imaging was performed. Three views. COMPARISON: CR XR KNEE RT 3V AP,LAT,ARAVIND from 11/13/2023 CR XR KNEE LT 3V AP,LAT,ARAVIND from 12/11/2023 MR MR LOWER JOINT LT WO from 01/10/2024 FINDINGS: BONES: No acute fracture is present. No bony destructive lesion is seen. Small patellar enthesophyt e. JOINTS: Stable alignment of medial femoral tibial joint space prosthesis. Lateral femoral tibial migdalia nt all joint are maintained. No joint effusion is seen. SOFT TISSUE: Normal. IMPRESSION: Stable postsurgical and degenerative changes. DATA REPOSITORY: RADIATION DOSE DELIVERED:
== END 2024-01-22 15:45 | disposition home or self-care (01) ==
LOC: DIORS 15:44
PROVIDERS: PCP Family Medicine; Referring Provider Family Medicine; Visit Provider Student in an Organized Health Care Education/Training Program
DX: M23.92 Unspecified internal derangement of left knee; Z96.651 Presence of right artificial knee joint
CPT/HCPCS: 73562; 99213

== ENCOUNTER 2024-02-01 00:49 | Outpatient (CLI) | payer MEDICARE, SELFPAY ==
--- NOTE | 2024-02-01 12:45 | DI.MAMMO_ITS ---
Exam(s) MAMMO SCREENING EXAM: MAMMO SCREENING CLINICAL HISTORY: screening,z12.39 TECHNIQUE: Bilateral full field digital CC and MLO mammographic images were obtained with 3D tomosyn thesis and utilizing computer aided detection (CAD). COMPARISON: Available for comparison. FINDINGS: Masses/Architectural Distortion: There is a stable well-circumscribed nodule in the retroareolar ayden on of the left breast superior to the nipple on the MLO view. No new nodules are seen. Microcalcifications: No suspicious pleomorphic-type are seen. Skin Thickening/Nipple Retraction: None. IMPRESSION: 1. No significant interval change with no specific features of malignancy noted. 2. Unless there is more urgent need, screening mammography is recommended, as per [place] guidelines. BI-RADS Category 2 - Benign Findings Breast Density - Category B - Scattered areas of fibroglandular density Breast density category C or D implies that the patient has dense breast tissue. Dense breast tissue is very common and is not abnormal but dense breast tissue can make it harder to find cancer on a ma mmogram. Also, dense breast tissue may increase their breast cancer risk. This information about the result of the mammogram report was provided to the patient to raise their awareness. Use this report when you speak with the patient about their risks for breast cancer, which includes their family hist ory. At that time, you may recommend for more screening tests (Ultrasound or MRI) as they might be us eful based on their risk. A negative radiographic report should not delay biopsy if a dominant or clinically suspicious mass is present. Up to ten percent of cancers are not identified on mammography. A negative report may reinforce clinical impression. Adenosis and dense breasts may obscure an underlying neoplasm. False positive reports average 6 to 10%. Patient will receive a letter notifying them of these results.
== END 2024-02-01 01:09 ==
LOC: DI 00:49
PROVIDERS: PCP Family Medicine; Visit Provider Family Medicine
DX: Z12.31 Encounter for screening mammogram for malignant neoplasm of breast (principal)
CPT/HCPCS: 77063; 77067

== ENCOUNTER → 2024-02-21 09:25 | Outpatient (BNVA) | payer MEDICARE, SELFPAY | PROVIDERS: PCP Family Medicine; Referring Provider Family Medicine | DX: M70.61 Trochanteric bursitis, right hip (principal) | CPT/HCPCS: 20610; J1010 ==

== ENCOUNTER 2024-02-26 07:14 | Outpatient (CLI) | payer MEDICARE, SELFPAY ==
--- NOTE | 2024-02-26 06:00 | DI.RAD_ITS ---
Exam(s) XR PAIN CLINIC LUMBAR SP 2V EXAM: XR PAIN CLINIC LUMBAR SP 2V CLINICAL HISTORY: DX: Lumbar Radiculopathy. TECHNIQUE: Fluoroscopy was provided for the referring physician for guidance with performing pain cl inic injection procedure. COMPARISON: No exams were available for comparison FINDINGS: Please see procedure note for details. Fluoro time: 12.3 seconds RADIATION DOSE DELIVERED: Ka,r=4.69 mGy
[2024-02-26 07:23] VITALS: BP 128/71; PULSE 61; RESP 20; TEMP 36.3; O2SAT 98
--- NOTE | 2024-02-26 07:31 | PDOC.PAIN ---
Date of service: 02/26/24 Time of Service: 08:00
[2024-02-26 07:43] VITALS: O2SAT 97
[2024-02-26 07:50] VITALS: O2SAT 97
--- NOTE | 2024-02-26 07:54 | PDOC.PAIN ---
Date of service: 02/26/24 Time of Service: 07:57 Pain Managment Procedure Note Procedure Note Procedure Note: Lumbar Interlaminar Epidural Steroid Injection ? Location: L5-S1 ? Pre-procedure Diagnosis: M54.16- Radiculopathy, LUMBAR region ? Post-procedure Diagnosis:? The same as above ? Sedation:? ? None ? Medication: Depo-Medrol 80 mg, Omnipaque 1 mL ? Estimated blood loss:? less than 2 cc ? Surgeon:? Shalom Thakkar MD COMMENT: ? Procedure Detail:? The procedure and potential risks were explained to the patient and informed written consent was obtained. The patient was escorted to the procedure room and placed in the prone position. Pillows were utilized for proper positioning and comfort. Time out was performed in the procedure room with nursing staff confirming the patient's identity, procedure to be performed, allergies, and any blood thinning or anti-platelet medications.? The patient's neck and upper back was prepped with ChloraPrep and draped in a sterile fashion. Sterile technique was maintained throughout the procedure.? Sterile gloves were used, a face mask was worn, and new single dose vials of all medications were used with the top being swabbed with alcohol and given time to dry prior to withdrawal of medication. Lidocane 1% was used to anesthetize the skin.Using a 25-gauge 1.5 inch needle, 1% lidocaine was instilled into the superficial soft tissue overlying the targeted area to provide local anesthesia. With fluoroscopic guidance, a 17 -gauge Tuohy needle was advanced toward the interlaminar space of L5-S1. The needle was then advance through the ligamentum flavum and into the posterior epidural space using the loss of resistance technique. Correct needle placement was confirmed through review of the AP and contralateral oblique fluoroscopic views. A 19-gauge arrow catheter was threaded cephalad to the Right Following negative aspiration, one cc of Omnipaque 240 contrast was injected which confirmed good flow throughout the epidural space and no evidence of vascular flow or flow into adjacent compartments. Next, following negative aspiration, 1 cc's of normal saline and 80mg of Depo-Medrol was injected. The needle was gently removed. The patient tolerated the procedure well and was transported to the recovery area for observation and discharge instructions. Permanent images saved and recorded. Plan:? Follow up prn. COMMENT:?Depending how she does with the epidural steroid injection and the PT she might be a good candidate for basivertebral nerve ablation at the L5 and S1 level.
[2024-02-26] MEDS: Omnipaque 240 MG/ML 50 ML BTL IJ (07:58)
[2024-02-26] MEDS: methylPREDNISolone ACETATE 40 MG/ML VIAL IJ (07:58)
[2024-02-26] MEDS: Epidural Tray 1 EACH MC (07:59)
== END 2024-02-26 07:15 | disposition home or self-care (01) ==
LOC: PC 07:14
PROVIDERS: PCP Family Medicine; Visit Provider Anesthesiology Pain Medicine
DX: M54.50 Low back pain, unspecified (principal); M54.16 Radiculopathy, lumbar region
CPT/HCPCS: 00123; 62323; 72100; J1010; Q9967

== ENCOUNTER 2024-10-07 09:48 | Outpatient (CLI) | payer MEDICARE, SELFPAY ==
[2024-10-07 12:23] LABS: HCT 34.9 % (36.0-46.0); MCH 30.9 pg (27.0-33.0); MCHC 34.4 % (32.0-36.0); MCV 90 fL (80-95); MPV 8.6 fL (8.0-11.0); Platelet Count 280 10^3/uL (130-400); RBC 3.88 10^6/uL (3.93-5.22); WBC 6.46 10^3/uL (4.4-10.8)
[2024-10-07 13:13] LABS: ALT 21 U/L (14-59); AST 16 U/L (15-37); Albumin 3.8 g/dL (3.4-5.0); Alkaline Phosphatase 100 U/L (46-116); Anion Gap 6.4 mmol/L (3-11); BUN 15 mg/dL (7-18); Bilirubin, Total 0.3 mg/dL (0.2-1.0); CO2 26.6 mmol/L (21.0-32.0); CREATININE 0.9 mg/dL (0.55-1.02); Chloride 103 mmol/L (98-107); Estimated GFR 70.51 (mL/min/1.73m2); Glucose 98 mg/dL (74-106); Magnesium 2.2 mg/dL (1.8-2.4); Potassium 4.1 mmol/L (3.5-5.1); Sodium 136 mmol/L (136-145); TSH (W/Ref FT4) 1.32 uIU/mL (0.36-3.74); Total Protein 7.6 g/dL (6.4-8.2); Vitamin B12 276 pg/mL (193-986)
[2024-10-08 12:11] LABS: Lab Add On Test DONE
[2024-10-08 12:27] LABS: Iron 68 ug/dL (50-170)
[2024-10-08 12:42] LABS: Ferritin 123 ng/mL (8-252)
== END 2024-10-07 09:49 | disposition home or self-care (01) ==
LOC: LOS 09:48
PROVIDERS: PCP Family Medicine; Visit Provider Family Medicine
DX: R55 Syncope and collapse (principal); E03.9 Hypothyroidism, unspecified; I10 Essential (primary) hypertension; D64.9 Anemia, unspecified
CPT/HCPCS: 36415; 80053; 85027; 82607; 82728; 83540; 83735; 84443

== ENCOUNTER 2024-10-10 10:40 | Outpatient (CLI) | payer MEDICARE, SELFPAY | END 2024-10-10 10:41 | disposition home or self-care (01) | PROVIDERS: PCP Family Medicine; Visit Provider Family Medicine | DX: R55 Syncope and collapse (principal) | CPT/HCPCS: 93246 ==

== ENCOUNTER 2024-10-27 01:41 | Outpatient (CLI) | payer MEDICARE, SELFPAY ==
--- NOTE | 2024-10-27 07:00 | DI.NM_ITS ---
APPROVED REPORT Exam: Pharmacologic Patient Location: Out-Patient Room/Bed: Stress Nurse: Roxann Garcia RN Ordering Provider:BENNY ILSA, Contact Number: [phone] BMI: 30.81 Baseline Rhythm: Sinus Rhythm Indications: Frequent traumatic falls, with syncope, SOB Medical History Medical History: Syncope/collapse, anemia, depression, Diiak-Xklyliafl-Ccilw pattern, chronic fatigue , head injury, former smoker Cardiac Medications: Tylenol, estradiol Allergies: Penicillins Cardiac Risk Factors: Family hx, former smoker Previous Cardiac Procedures: None Pretest Chest Pain Characteristics: None Exercise History: Sedentary Physical Disabilities: hx syncope with falls Lung Sounds: Clear to auscultation Heart Sounds: Regular Stress Test Details Nuclear Acquisition: Rest Tc-99m/Stress Tc-99m 1 day Rest Isotope: Tc-99m Sestamibi. Dose: 10.0 Date: 10/27/2024 Injection Time: 0845 Stress Isotope: Tc-99m Sestamibi. Dose: 30.0 Date: 10/27/2024 Injection Time: 1014 HR Resting HR Supine: 67 bpm Max Heart Rate (APMHR): 154 bpm Target HR (85% APMHR): 131 bpm Max HR Achieved: 90 bpm % of APMHR: 58 Recovery HR: 81 bpm BP Resting BP Supine: 124/80 mmHg Max BP: 140/80 mmHg Recovery BP: 120/70 mmHg ECG Resting ECG: Sinus Rhythm Ectopy: None Stress ECG: Sinus Rhythm ST Change: Nondiagnostic low heart rate Arrhythmia: None Recovery ECG: Sinus Rhythm Recovery ST Change: Nondiagnostic low heart rate Clinical Angina Score: None Rate Pressure Product: [id number] Stress ECG Conclusion 1. Resting electrocardiogram was normal 2. Patient underwent testing using pharmacologic stress with regadenoson 3. Peak heart rate achieved is 58% of the maximal predicted for age 4. The electrocardiographic portion of the test was nondiagnostic 5. See MPI report Stress Test Summary STAGE HR BP SpO2 Symptoms NOTES Supine 67 124/80 96% 1 min post Lexiscan injection 90 140/80 3 min post Lexiscan injection 87 130/78 98% 6 min post Lexiscan injection 81 120/70 98% MPI Conclusion Myocardial perfusion is normal. There is no ischemia or evidence of prior infarction Ejection fraction is 71% with normal wall motion
[2024-10-27] MEDS: Regadenoson 0.4 MG/5 ML SYR IVP (13:39)
== END 2024-10-27 02:01 ==
LOC: DI 01:42
PROVIDERS: PCP Family Medicine; Visit Provider Family Medicine
DX: R06.02 Shortness of breath (principal)
CPT/HCPCS: 78452; 93016; 93018; 93017; J2785

== ENCOUNTER 2024-10-31 00:05 | Outpatient (CLI) | payer MEDICARE, SELFPAY ==
--- NOTE | 2024-10-31 06:30 | DI.US_ITS ---
Exam(s) US CAROTID EXAM: US CAROTID CLINICAL HISTORY: 2 falls with extension of neck,syncope,r55. TECHNIQUE: Ultrasound carotids performed using grayscale, color-flow, and spectral Doppler imaging. COMPARISON: US US BREAST RT LIMITED from 01/30/2023 FINDINGS: CAROTID ARTERIES: There is minimal if any significant plaque evident in the visualized common carotid arteries, carotid bulbs and proximal internal carotid arteries in the neck. No evidence of signific ant atherosclerotic narrowing. Also no elevated velocities evident in the internal carotid arteries in the neck. VERTEBRAL ARTERIES: Antegrade flow demonstrated in both vertebral arteries.. Measurements: R Bulb: 53.8cm/s PS / 12.5cm/s ED R CCA: 72.9cm/s PS / 24cm/s ED R ECA: 93.6cm/s PS / 16cm/s ED R ICA Prox: 77cm/s PS / 30.1cm/s ED R ICA Mid: 87.7cm/s PS / 32.2cm/s ED R ICA Distal: 73.3cm/s PS /28.3cm/s ED R Vert: 46.4cm/s PS / 15.2cm/s ED R SVR: 1.2 R DVR: 1.3 L Bulb: 59.8cm/s PS / 22.3cm/s ED L CCA: 77.6cm/s PS / 23.1cm/s ED L ECA: 92.5cm/s PS / 17.1cm/s ED L ICA Prox: 114.7cm/s PS / 35.9cm/s ED L ICA Mid: 96.5cm/s PS / 37.1cm/s ED L ICA Distal: 78.9cm/s PS / 31.7cm/s ED L Vert: 57.6cm/s PS / 18.3cm/s ED L SVR: 1.5 L DVR: 1.6 IMPRESSION: No evidence for hemodynamically significant carotid stenosis. Antegrade flow is demonstrated in both vertebral arteries. Criteria for Carotid Stenosis: Normal: ICA PSV <125 cm/s no plaque or intimal thickening is visible. <50% stenosis: ICA PSV <125 cm/s and plaque or intimal thickening is visible. 50-69% stenosis: ICA PSV is 125-250 cm/s and plaque is visible. >70% stenosis to near occlusion: ICA PSV >250 cm/s with visible plaque and luminal narrowing. DATA REPOSITORY:
--- NOTE | 2024-10-31 07:30 | DI.US_ITS ---
APPROVED REPORT EXAM: Comprehensive 2D, Doppler, and color-flow Echocardiogram Patient Location: Out-Patient Hand Model: Christiano Erickson RDCS (AE) Indications: Syncope Other Information Study Quality: Technically Difficult. Technically limited study due to body habitus. Conclusion Technically difficult study Grossly normal left ventricular chamber size, wall thickness and systolic function. No segmental wal l motion abnormalities are identified Normal right ventricular size and function Both atria are normal in size There are no structural valvular abnormalities Mild mitral and tricuspid regurgitation Estimated right ventricular systolic pressure is 26 mmHg Wall motion Left Ventricle The left ventricle is grossly normal size. The left ventricular systolic function is normal. The left ventricular ejection fraction is within the normal range. Unable to assess LV wall thickness due to poor parasternal windows. There is normal LV segmental wall motion. There is no ventricular septal de fect visualized. LVEF is 60 %. Right Ventricle The right ventricle is normal size. The right ventricular systolic function is normal. Atria The left atrium size is normal. The right atrium size is normal. The interatrial septum is intact wit h no evidence for an atrial septal defect. Aortic Valve The aortic valve is normal in structure. Aortic valve is trileaflet. There is no aortic valvular sten osis. No aortic regurgitation is present. Mitral Valve The mitral valve is normal in structure. No evidence of mitral valve stenosis. Mild mitral regurgitat ion. Tricuspid Valve The tricuspid valve is normal in structure. There is no tricuspid valve stenosis. Mild tricuspid regu rgitation. The RVSP is 26.2 mmHg. Pulmonic Valve The pulmonary valve is normal in structure. There is no pulmonic valvular stenosis. There is no pulmo livia valvular regurgitation. Great Vessels The aortic root is normal in size. The ascending aorta is normal in size. IVC is normal in size and c ollapses >50% with inspiration. Pericardium There is no pericardial effusion. 2D Dimensions Ao Root d 2.96 cm F: 2.7 - 3.3 Ao Asc Diam d 2.92 cm F: 2.3 - 3.1 M-Mode TAPSE 2.21 cm (M/F) >1.7 Auto EF LV EDV A4C 87.5 mL LV EDV A2C 78.7 mL LV EDV BP 82.2 mL LV ESV A4C 37.1 mL LV ESV A2C 33.6 mL LV ESV BP 35.1 mL LVEF(%) A4C 57.6 % LVEF(%) A2C 57.3 % LVEF(%) BP 57.3 % LV SV A4C 50.4 ml LV SV A2C 45.1 ml LV SV BP 47.1 ml LV CO A4C 3.6 L/min LV CO A2C 2.9 L/min LV CO BP 3.2 L/min HR A4C 71.01 BPM HR A2C 63.70 BPM LV EDV Index (BP) LA Volume LA Length A4C 5.8 cm LA Length A2C 4.4 cm LA Area A4C s 11.56 cm2 LA Area A2C s 9.74 cm2 LA Vol A4C A-L 19.72 mL LA Vol A2C A-L 18.37 mL LA Vol Biplane A-L 21.8 mL LA Vol/BSA A4C A-L LA Vol/BSA A2C A-L LA Vol/BSA BP A-L 12.0 mL/m2 LA Vol A4C MOD 19.2 mL LA Vol A2C MOD 17.1 mL LA Vol BP MOD 20.6 mL RA Volume RA Area A4C 7.5 cm2 RA ESV A4C (A-L) 13.0mL RA Vol/BSA A4C A-L RA Length A4C 3.6 cm RA ESV A4C (MOD) 12.2mL LV Diastology MV E' medial 0.088 (>0.07 m/s) MV E Vmax 0.90 (0.4-1.3 m/s) MV E/E' MED 10.16 (<14) MV A Vmax 0.80 (0.4-1.3 m/s) MV E' lateral 0.104 (>0.1 m/s) E/A Ratio 1.1 MV E/E' LAT 8.60 (<14) MV E' Average 0.096 m/s MV E/E'(average) 9.32 Aortic Valve AoV Vmax 1.56 m/s LVOT Vmax 1.40 m/s AoV Peak Grad 9.7 mmHg LVOT Peak Grad 7.9 mmHg AoV Area (Vmax) 2.87 cm2 LVOT VTI 0.262 m AoV VTI 0.326 m LVOT Mean Grad 4.0 mmHg AoV Mean Jhony. 1.01 m/s LVOT SV 83.72 mL AoV Mean Grad 4.8 mmHg LVOT Diam s 2.00 cm AoV Area (VTI) 2.57 cm2 AV Regurg Peak Gr. 9.68 mmHg Velocity Ratio 0.90 Mitral Valve MV DT 183 (160-240 msec) MV Vmax TIPS 0.70 m/s MV Mean Grad 0.9 (<2mmHg) MV VTI 0.225 m Pulmonary Valve PV Vmax 0.75 (0.5-1.5 m/s) RVOT Vmax 0.69 m/s PV Peak Grad 2.2 mmHg RVOT Peak Gr. 1.9 mmHg PV Mean Jhony 0.52 m/s RVOT VTI 0.134 m PV Mean Grad 1.3 mmHg RVOT Mean Gr. 1.0 mmHg Tricuspid Valve RA Pressure 3.00 mmHg TR Vmax 2.41 m/s TR Peak Grad 23.1 mmHg RVSP (TR) 26.2 mmHg
== END 2024-10-31 00:25 ==
LOC: DI 00:05
PROVIDERS: PCP Family Medicine; Visit Provider Internal Medicine Cardiovascular Disease
DX: R55 Syncope and collapse (principal); I08.1 Rheumatic disorders of both mitral and tricuspid valves
CPT/HCPCS: 93306; 93880

== ENCOUNTER 2024-11-20 14:34 | Outpatient (CLI) | payer MEDICARE, SELFPAY ==
--- NOTE | 2024-11-20 13:00 | DI.RAD_ITS ---
Exam(s) XR SHOULDER LT COMPLETE 2+V EXAM: XR SHOULDER LT COMPLETE 2+V CLINICAL HISTORY: s/p Reverse Total Shoulder-left. TECHNIQUE: 2D digital imaging was performed. Two images were obtained. Grashey and Y views were obt ained. COMPARISON: No exams were available for comparison FINDINGS: BONES: There are stable post operative changes of a left reverse total shoulder replacement present. There is disruption of the cortex seen laterally suspicious for fracture. JOINTS: The orthopedic hardware is in good position. No evidence of hardware loosening. SOFT TISSUE: Normal. IMPRESSION: 1. Left reverse total shoulder replacement. 2. On the Grashey view, there is a disruption of the cortex suspicious for a fracture. There are no priors for comparison. If there are prior sent existence they may be submitted and an addendum will be added. DATA REPOSITORY: RADIATION DOSE DELIVERED:
== END 2024-11-20 14:35 | disposition home or self-care (01) ==
LOC: DIORS 14:34
PROVIDERS: PCP Family Medicine; Referring Provider Family Medicine; Visit Provider Physician Assistant
DX: T84.028A Dislocation of other internal joint prosthesis, initial encounter (principal); Z96.612 Presence of left artificial shoulder joint; R20.0 Anesthesia of skin; S82.492A Other fracture of shaft of left fibula, initial encounter for closed fracture; W19.XXXA Unspecified fall, initial encounter
CPT/HCPCS: 99213; 73030

== ENCOUNTER 2025-01-21 01:27 | Outpatient (CLI) | payer MEDICARE, SELFPAY ==
--- NOTE | 2025-01-21 07:00 | DI.DEXA_ITS ---
Exam(s) XR DEXA BONE DENSITY W/WO [place] EXAM: XR DEXA BONE DENSITY W/WO [place] CLINICAL HISTORY: fractures,postmenopausal status,z78.0,[id number] TECHNIQUE: COMPARISON: CR XR DEXA BONE DENSITY W/WO [place] from 01/23/2023 FINDINGS: Lateral Spine Image: Unremarkable. No compression deformities identified. Left hip: Total T-Score: -1.1. This compares to -1.2 on the prior examination. Total Z-Score: 0.2 T- and Z-scores: Findings are consistent with osteopenia. Lumbar Spine: Total T-Score: 0.7. This compares to 0.4 on the prior examination. Total Z-Score: 2.6 T- and Z-scores: Within normal limits. IMPRESSION: No evidence of osteoporosis.
== END 2025-01-21 01:47 ==
PROVIDERS: PCP Family Medicine; Visit Provider Family Medicine
DX: Z78.0 Asymptomatic menopausal state (principal); T14.8XXA Other injury of unspecified body region, initial encounter
CPT/HCPCS: 77080

== ENCOUNTER 2025-02-09 03:22 | Outpatient (CLI) | payer MEDICARE, SELFPAY ==
--- NOTE | 2025-02-09 09:35 | DI.MAMMO_ITS ---
Exam(s) MAMMO SCREENING EXAM: MAMMO SCREENING CLINICAL HISTORY: screening, Z12.39 TECHNIQUE: Bilateral full field digital CC and MLO mammographic images were obtained with 3D tomosynthesis and utilizing computer aided detection (CAD). COMPARISON: Comparison is made with prior examinations. FINDINGS: Masses/Architectural Distortion: No suspicious masses or areas of architectural distortion are present. There are stable nodule seen in both breasts. Microcalcifications: No suspicious pleomorphic-type are seen. Skin Thickening/Nipple Retraction: None. IMPRESSION: 1. No significant interval change with no specific features of malignancy noted. 2. Unless there is more urgent need, screening mammography is recommended, as per [place] [employer] guidelines. BI-RADS Category 2 - Benign Findings Breast Density - Category B - There are scattered areas of fibroglandular density. Breast density Category C or D implies that the patient has dense breast tissue. Dense breast tissue can make it harder to find cancer on a mammogram. Dense breast tissue is also associated with an increased risk of breast cancer. This information about the result of the mammogram report was provided to the patient to raise their awareness. Use this report when you speak with the patient about their risks for breast cancer, which includes their family history. At that time, you may recommend additional screening tests (Ultrasound or MRI) as these tests may add significant information. A negative radiographic report should not delay biopsy if a dominant or clinically suspicious mass is present. Up to ten percent of cancers are not identified on mammography. A negative report may reinforce clinical impression. Adenosis and dense breasts may obscure an underlying neoplasm. False positive reports average 6 to 10%. Patient will receive a letter notifying them of these results.
== END 2025-02-09 03:42 ==
PROVIDERS: PCP Family Medicine; Visit Provider Family Medicine
DX: Z12.31 Encounter for screening mammogram for malignant neoplasm of breast (principal); R92.323 Mammographic fibroglandular density, bilateral breasts
CPT/HCPCS: 77063; 77067

== ENCOUNTER 2025-03-04 10:56 | Outpatient (CLI) | payer MEDICARE, SELFPAY ==
--- NOTE | 2025-03-04 09:05 | DI.RAD_ITS ---
Exam(s) XR SHOULDER LT COMPLETE 2+V EXAM: XR SHOULDER LT COMPLETE 2+V CLINICAL HISTORY: evaluation of shoulder. TECHNIQUE: 2D digital imaging was performed. Two images were obtained. Grashey and Y views were obtained. COMPARISON: CR XR SHOULDER LT COMPLETE 2+V from 11/20/2024 FINDINGS: BONES: There are stable post operative changes of a left reverse total shoulder arthroplasty present. There is again seen disruption of the cortex of the lateral aspect of the humeral stem component. JOINTS: The orthopedic hardware is in good position. No evidence of hardware loosening. SOFT TISSUE: Normal. IMPRESSION: Stable left reverse total shoulder arthroplasty. DATA REPOSITORY: RADIATION DOSE DELIVERED:
== END 2025-03-04 10:57 | disposition home or self-care (01) ==
LOC: DIORS 10:56
PROVIDERS: PCP Family Medicine; Visit Provider Student in an Organized Health Care Education/Training Program
DX: Z47.1 Aftercare following joint replacement surgery (principal); Z96.612 Presence of left artificial shoulder joint
CPT/HCPCS: 99213; 73030